=== PATIENT | male | born 1965 | race Asian ===

== ENCOUNTER 2018-05-15 20:58 | Inpatient (IN) | payer OTHER ==
[~2018-05-15] VITALS: Ht 162.6 cm; Wt 79.7 kg
[2018-05-15 23:00] VITALS: BP 154/86; PULSE 63; RESP 20
[2018-05-15] MEDS ORDERED: VANCOMYCIN IV PER PHARMACY XX SCH (23:30)
[2018-05-15] MEDS ORDERED: LEVOFLOXACIN 500 MG TAB PO ONE (23:30)
[2018-05-15] MEDS ORDERED: ACETAMINOPHEN 325 MG TAB PO PRN (23:30)
[2018-05-15] MEDS ORDERED: NACL 0.9% 3 ML SYG IV SCH (23:30)
[2018-05-15] MEDS ORDERED: ONDANSETRON 4 MG TAB PO PRN (23:30)
[2018-05-15] MEDS ORDERED: DOCUSATE SODIUM 100 MG CAP PO PRN (23:30)
[2018-05-15] MEDS ORDERED: HYDROCODONE/APAP (5/325) TAB PO PRN (23:30)
[2018-05-15] MEDS ORDERED: DEXTROSE 50% 50 ML SYRINGE IV PRN ×2 (23:45)
[2018-05-15] MEDS ORDERED: GLUCOSE GEL 15 GRAM TUBE PO PRN ×2 (23:45)
[2018-05-15] MEDS ORDERED: GLUCAGON 1 MG INJ IM PRN (23:45)
[2018-05-15] MEDS ORDERED: GLUCOSE GEL 15 GRAM TUBE BUCCAL PRN (23:45)
[2018-05-16] MEDS ORDERED: VANCOMYCIN HCL 1.5 GM in SOD CHLORIDE 0.9% 250 ML IVPB ONE (01:00)
[2018-05-16] MEDS ORDERED: ACCU-CHEK XX SCH (02:00)
[2018-05-16 03:12] VITALS: BP 114/71; PULSE 58; RESP 20
[2018-05-16] MEDS ORDERED: LEVOFLOXACIN 750 MG TABLET PO SCH (06:00)
[2018-05-16 07:27] VITALS: BP 118/77; PULSE 62; RESP 15
[2018-05-16] MEDS ORDERED: metFORMIN 850 MG TAB PO SCH (07:50)
[2018-05-16] MEDS: INSULIN ASPART [NOVOLOG] 3 ML PEN SC SCH ×2 (07:50→12:42)
[2018-05-16] MEDS ORDERED: FAMOTIDINE 20 MG TAB PO SCH (09:00)
[2018-05-16] MEDS ORDERED: HEPARIN 5,000 UNIT/1 ML VIAL SC SCH (09:00)
--- NOTE | 2018-05-16 09:05 | HP ---
Date/Time of Note Date/Time of Note DATE: 05/16/18 TIME: 09:00 Assessment/Plan VTE Prophylaxis Risk score (from Ns)>0 risk: 1 SCD applied (from Ns): Yes SCD contraindicated: low risk/ambulating Pharmacological prophylaxis: heparin Lines/Catheters IV Catheter Type [facility]from [facility]): [place] [facility] Urinary Cath still in place: No Assessment/Plan Problems: (1) Diabetes mellitus type 2 in obese Status: Chronic Comment: Good glycemic control and continue with current oral regimen. (2) Hyperlipidemia Status: Chronic Comment: Control is at goal using full dose statin therapy Qualifiers: Hyperlipidemia type: pure hypercholesterolemia Qualified Codes: E78.00 - Pure hypercholesterolemia, unspecified (3) Acute mastoiditis of left side Status: Acute Comment: He is receiving IV antibiotics plus oral quinolones. We will have ear nose and throat consultation with Dr. Hoffman who have communicated by text directly. He will give us guidance about the ultimate outpatient evaluation (4) Left maxillary sinusitis Status: Chronic Comment: This is clearly been going on for a while and will do well to be attended to although this I believe can be done as an outpatient. Consultation with Dr. Hoffman to help give us guidance Result Diagram: 05/16/18 0445 05/16/18 0445 Results 24hrs Laboratory Tests Test 05/16/18 02:56 05/16/18 04:45 05/16/18 08:31 Bedside Glucose 120 137 White Blood Count 7.7 Red Blood Count 4.88 Hemoglobin 14.1 Hematocrit 42.6 Mean Corpuscular Volume 87.3 Mean Corpuscular Hemoglobin 28.9 L Mean Corpuscular Hemoglobin Concent 33.1 Red Cell Distribution Width 12.0 Platelet Count 178 Mean Platelet Volume 11.5 H Immature Granulocytes % 0.100 Neutrophils % 62.1 Lymphocytes % 25.5 Monocytes % 9.0 Eosinophils % 2.6 Basophils % 0.7 Nucleated Red Blood Cells % 0.0 Immature Granulocytes # 0.010 Neutrophils # 4.8 Lymphocytes # 2.0 Monocytes # 0.7 Eosinophils # 0.2 Basophils # 0.1 Nucleated Red Blood Cells # 0.0 Sodium Level 137 Potassium Level 4.0 Chloride Level 98 Carbon Dioxide Level 30 Anion Gap 9 Blood Urea Nitrogen 14 Creatinine 0.75 Est Glomerular Filtrat Rate mL/min > 60 Glucose Level 134 Hemoglobin A1c 6.7 H Calcium Level 9.1 Total Bilirubin 0.5 Direct Bilirubin 0.00 Indirect Bilirubin 0.5 Aspartate Amino Transf (AST/SGOT) 29 Alanine Aminotransferase (ALT/SGPT) 45 Alkaline Phosphatase 58 Total Protein 7.7 Albumin 4.1 Globulin 3.60 H Albumin/Globulin Ratio 1.13 Triglycerides Level 106 Cholesterol Level 156 LDL Cholesterol, Calculated 89 HDL Cholesterol 46 Cholesterol/HDL Ratio 3.3 Thyroid Stimulating Hormone (TSH) 1.850 HPI/ROS Admit Date/Time Admit Date/Time May 15, 2018 at 22:46 Hx of Present Illness 83-year-old [place]an gentleman was in the emergency room at [facility] after having had 4-5 days of vertigo symptoms. He had not had any confusion he had not had any fevers chills or sweats he did not have headaches he did not have any neck pain or neck stiffness. They did CT scans copies of the reports of which are in our medical records which showed an acute mastoiditis. The emergency room physician at [facility] emergency room felt that he needed to be seen by ear nose and throat physician which [place] does not have available. He was transferred here so that he could be seen by ear nose and throat. Please note they gave him a dose of IV cephalosporins there. I have continued his antibiotics here and he reports in the 12 hours is been here is feeling better. No past medical history of diabetes in this non-smoker ROS Constitutional: no complaints (Denies fevers chills or sweats) Eyes: no complaints (No vision issues) ENT: other (Vertigo that is resolved also on careful questioning he does have fairly constant postnasal drip) Respiratory: no complaints Cardiovascular: no complaints Gastrointestinal: no complaints Genitourinary: no complaints Musculoskeletal: no complaints Skin: no complaints Neurologic: dizziness Endocrine: no complaints Lymphatic: no complaints Psychological: no complaints, nl mood/affect Immunologic: no complaints PMH/Family/Social Past Medical History Medical History: diabetes (Type II controlled with oral agents), high cholesterol, other (Usual childhood diseases; history of varus sella) Medications Outpatient medication regimen metformin 1 g once a day; atorvastatin 80 mg once a day Current Medications IV Flush (NS 3 ml) 3 ml PER PROTOCOL IV ; Start 05/15/18 at 23:30 Ondansetron HCl (Zofran Tab) 4 mg Q6H PRN PO NAUSEA AND/OR VOMITING; Start 05/15/18 at 23:30 Acetaminophen (Tylenol Tab) 650 mg Q6H PRN PO PAIN LEVEL 1-3 OR FEVER; Start 05/15/18 at 23:30 Acetaminophen/ Hydrocodone Bitart ([place] (5/325)) 1 tab Q6H PRN PO MODERATE PAIN LEVEL 4-6; Start 05/15/18 at 23:30 Docusate Sodium (Colace) 100 mg Q12H PRN PO CONSTIPATION; Start 05/15/18 at 23:30 Famotidine (Pepcid) 20 mg Q12 PO Last administered on 05/16/18at 08:33; Admin Dose 20 MG; Start 05/16/18 at 09:00 Heparin Sodium (Porcine) (Heparin (5000 Units/1ml)) 5,000 unit Q12 SC Last administered on 05/16/18at 08:36; Admin Dose 5,000 UNIT; Start 05/16/18 at 09:00 Diagnostic Test (Pha) (Accu-Chek) 1 ea 02 XX ; Start 05/16/18 at 02:00 Diagnostic Test (Pha) (Accu-Chek) 1 ea 2 HOURS AFTER MEALS XX ; Start 05/16/18 at 09:50 Insulin Aspart (Novolog Insulin Pen) NOVOLOG *MILD* ALGORITHM WITH MEALS BEDT [place] ; Start 05/16/18 at 07:50 Metformin HCl (Glucophage) 850 mg BID WITH MEALS PO Last administered on 05/16/18at 08:32; Admin Dose 850 MG; Start 05/16/18 at 07:50 Atorvastatin Calcium (Lipitor) 80 mg HS PO ; Start 05/16/18 at 21:00 Vancomycin HCl (Vanco Iv Per Pharmacy) VANCOMYCIN PER PHARMACY PER PROTOCOL XX ; Start 05/15/18 at 23:30 Levofloxacin (Levaquin) 750 mg DAILY@06 PO Last administered on 05/16/18at 05:21; Admin Dose 750 MG; Start 05/16/18 at 06:00 Miscellaneous Information 1 ea NOTE XX ; Start 05/15/18 at 23:45 Glucose (Glutose) 15 gm Q15M PRN PO DECREASED GLUCOSE; Start 05/15/18 at 23:45 Glucose (Glutose) 22.5 gm Q15M PRN PO DECREASED GLUCOSE; Start 05/15/18 at 23:45 Dextrose (D50w Syringe) 25 ml Q15M PRN IV DECREASED GLUCOSE; Start 05/15/18 at 23:45 Dextrose (D50w Syringe) 50 ml Q15M PRN IV DECREASED GLUCOSE; Start 05/15/18 at 23:45 Glucagon (Glucagen) 1 mg Q15M PRN IM DECREASED GLUCOSE; Start 05/15/18 at 23:45 Glucose (Glutose) 15 gm Q15M PRN BUCCAL DECREASED GLUCOSE; Start 05/15/18 at 23:45 Vancomycin HCl 1.25 gm/Sodium Chloride 250 ml @ 83.333 mls/ hr Q12H IVPB ; Start 05/16/18 at 13:00 Miscellaneous Information (*Rx Drug Level Order Reminder*) VANCO TROUGH @ 1,200 ON... ONCE ONCE XX ; Start 05/17/18 at 12:00; Stop 05/17/18 at 12:01 Coded Allergies: No Known Allergy (Unverified , 05/15/18) Past Surgical History Past Surgical Hx: other (Status post repair of rectal fistula in the remote p ast) Family History Significant Family History: diabetes, hypertension Social History Born in the [facility] and raised there. High school education without experience. lives with his and children. 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 Alcohol Use: rarely Smoking Status: Never smoker Drug Use: none Exam/Review of Systems Vital Signs Vitals Vital Signs Date Temp Pulse Resp B/P (MAP) Pulse Ox O2 O2 Flow FiO2 Time Delivery Rate 05/16/18 97.7 62 15 118/77 99 Room Air 07:27 (91) Intake and Output 05/15/18 05/15/18 05/16/18 1515:00 23:00 07:00 IntakeIntake Total 370 ml BalanceBalance 370 ml Exam Constitutional: alert, oriented Psych: no complaints, nl mood/affect Head: normocephalic, atraumatic Eyes: nl conjunctiva, EOMI, nl lids, nl sclera, PERRL ENMT: nl external ears & nose, nl lips & teeth, nl nasal mucosa & septum, mucosa pink and moist, other Neck: supple, non-tender Respiratory: clear to auscultation, normal air movement Cardiovascular: regular rate and rhythm, nl pulses Gastrointestinal: soft, nl liver, spleen, non-tender Musculoskeletal: nl extremities to inspection Neurological: DIGITAL PRODUCTION ARTIST II-XII intact, nl mental status, nl speech, nl strength RUSLAN MAYORGA MD May 16, 2018 09:05
[2018-05-16] MEDS: ACCU-CHEK XX SCH ×2 (10:54→13:40)
[2018-05-16] MEDS ORDERED: VANCOMYCIN HCL 1.25 GM in SOD CHLORIDE 0.9% 250 ML IVPB SCH (13:00)
--- NOTE | 2018-05-16 13:44 | DS ---
Date/Time of Note Date/Time of Note DATE: 05/16/18 TIME: 13:40 Discharge Summary Admission/Discharge Info Admit Date/Time May 15, 2018 at 22:46 Discharge Date/Time May 16, 2018 Discharge Diagnosis Otitis, Vestibulitis, DM2, Hyperlipidemia, Chronic sinusitis Patient Condition: Good Hx of Present Illness 53-year-old [place] gentleman was in the emergency room at [facility] after having had 4-5 days of vertigo symptoms. He had not had any confusion he had not had any fevers chills or sweats he did not have headaches he did not have any neck pain or neck stiffness. They did CT scans copies of the reports of which are in our medical records which showed an acute mastoiditis. The emergency room physician at [facility] emergency room felt that he needed to be seen by ear nose and throat physician which [place] does not have available. He was transferred here so that he could be seen by ear nose and throat. Please note they gave him a dose of IV cephalosporins there. I have continued his antibiotics here and he reports in the 12 hours is been here is feeling better. No past medical history of diabetes in this non-smoker Hospital Course Seen by ENT consult who feels can be appropriately managed as an outpatient with follow up with them in a week. Likely chronic Otitis Follow-up Plan Ent in 1 week, My office as scheduled in 2 months Primary Care Provider Ruslan Genao MD Time spent on discharge: > 30 minutes Pending Labs Laboratory Tests Test 05/16/18 02:56 05/16/18 04:45 05/16/18 08:31 05/16/18 10:52 Bedside 120 137 127 Glucose mg/dL (70-220) mg/dL (70-220) mg/dL (70-220) White Blood 7.7 Count 10^3/ul (4.8-1 0.8) Red Blood 4.88 Count 10^6/ul (4.70- 6.10) Hemoglobin 14.1 g/dl (14.0-18. 0) Hematocrit 42.6 % (42.0-52.0) Mean 87.3 Corpuscular fl (82.0-101.0 Volume ) Mean 28.9 Corpuscular pg (29.0-33.0) Hemoglobin Mean 33.1 Corpuscular g/dl (32.0-37. Hemoglobin Conc 0) ent Red Cell 12.0 Distribution % (11.5-14.5) Width Platelet Count 178 10^3/UL (140-4 15) Mean Platelet 11.5 Volume fl (7.4-10.4) Immature 0.100 Granulocytes % % (0.001-0.429 ) Neutrophils % 62.1 % (39.0-77.0) Lymphocytes % 25.5 % (15.0-51.0) Monocytes % 9.0 % (0.0-11.0) Eosinophils % 2.6 % (0.0-7.0) Basophils % 0.7 % (0.0-2.0) Nucleated Red 0.0 Blood Cells % /100WBC (0.0-0 .0) Immature 0.010 Granulocytes # 10^3/ul (0.0-0 .031) Neutrophils # 4.8 10^3/ul (1.6-7 .5) Lymphocytes # 2.0 10^3/ul (0.8-2 .9) Monocytes # 0.7 10^3/ul (0.3-0 .9) Eosinophils # 0.2 10^3/ul (0.0-0 .5) Basophils # 0.1 10^3/ul (0.0-0 .1) Nucleated Red 0.0 Blood Cells # 10^3/ul (0.0-0 .0) Sodium Level 137 mmol/L (135-14 4) Potassium 4.0 Level mmol/L (3.5-5. 1) Chloride Level 98 mmol/L (97-110 ) Carbon Dioxide 30 Level mmol/L (21-31) Anion Gap 9 (5-13) Blood Urea 14 Nitrogen mg/dl (7-20) Creatinine 0.75 mg/dl (0.61-1. 24) Est Glomerular > 60 Filtrat mL/min (>60) Rate mL/min Glucose Level 134 mg/dl (70-220) Hemoglobin A1c 6.7 % (0-5.9) Calcium Level 9.1 mg/dl (8.4-10. 2) Total 0.5 Bilirubin mg/dl (0.2-1.3 ) Direct 0.00 Bilirubin mg/dl (0.00-0. 20) Indirect 0.5 Bilirubin mg/dl (0-1.1) Aspartate Amino 29 Transf (AST/SGO IU/L (15-46) T) Alanine 45 Aminotransferas IU/L (13-69) e (ALT/SGPT) Alkaline 58 Phosphatase IU/L (42-121) Total Protein 7.7 g/dl (6.1-8.1) Albumin 4.1 g/dl (3.3-4.9) Globulin 3.60 g/dl (1.3-3.2) Albumin/Globuli 1.13 n Ratio Triglycerides 106 Level mg/dl (0-149) Cholesterol 156 Level mg/dl (100-200 ) LDL 89 mg/dl Cholesterol, Calculated HDL 46 Cholesterol mg/dl (28-71) Cholesterol/HDL 3.3 RATIO Ratio Thyroid 1.850 Stimulating MIU/L (0.465-4 Hormone (TSH) .680) Test 05/16/18 12:40 Bedside 97 Glucose mg/dL (70-220) RUSLAN GENAO MD May 16, 2018 13:44
--- NOTE | 2018-05-16 13:45 | PDOCDIS ---
Discharge Instructions DIAGNOSIS Discharge Diagnosis Otitis, Vestibulitis, DM2, Hyperlipidemia, Chronic sinusitis CONDITION [id number] Patient Condition: [id number] Fair HOME CARE INSTRUCTIONS: [id number] Special Diet: [id number] diabetic ACTIVITY: [id number] Activity Restrictions: [id number] No Restrictions FOLLOW UP/APPOINTMENTS Follow-up Plan Ent in 1 week, My office as scheduled in 2 months RUSLAN MAYORGA MD May 16, 2018 13:45
[2018-05-16] MEDS ORDERED: ATOR-2 PO (13:46)
[2018-05-16] MEDS ORDERED: LEVO750T25 PO (13:46)
[2018-05-16] MEDS ORDERED: METF-480 PO (13:46)
--- NOTE | 2018-05-16 16:52 | HP ---
DATE OF ADMISSION: 05/15/2018 HISTORY OF PRESENT ILLNESS: Shawn Bustillos is a 53-year-old gentleman with a history of dizziness fo r 2 days. He presented to [facility] with nausea but no vomiting. CAT scan of his head s howed possible left otomastoiditis and he was transferred to [facility]. The CT of his brain yesterday showed a possible retrocerebellar radha cisterna magna versus arachnoid cyst ____ sinus disease as well as left mastoid and middle ear opacification. A followup CT of the sinus show ed left frontal sinus complete opacification, total opacification of the left ethmoid cavity, left ma xillary sinus complete opacification and what appears to be a left middle meatal polyp. At this poin t, he denies any otalgia or otorrhea. He never had any true vertigo, just imbalance, although he is presently able to ambulate without significant dizziness. He has no tinnitus but has had some hearin g loss in his left ear for some time, a little worse for the last week. He did, however, a recent up per respiratory infection. PAST MEDICAL HISTORY: Type 2 diabetes, hypertension, hyperlipidemia. PAST SURGICAL HISTORY: Repair of rectal fistula. ALLERGIES: NO KNOWN DRUG ALLERGIES. MEDICATIONS: 1. Vancomycin. 2. Levaquin. 3. Lipitor. 4. Metformin. 5. Insulin. 6. Pepcid. 7. Heparin. SOCIAL HISTORY: Negative tobacco, alcohol, drug abuse. FAMILY HISTORY: Negative for any heart, lung, kidney failure, liver disease. REVIEW OF SYSTEMS: Otherwise noncontributory. PHYSICAL EXAMINATION: On examination today, the right eardrum is retracted, but there is no fluid, e rythema or infection. The left canal is clear. The tympanic membrane shows a total tympanic membran e perforation. The middle ear mucosa shows mild middle ear mucosal edema, but no evidence of dischar ge or infection at this time. There is no mastoid tenderness. The nose shows midline septum. Nasal endoscopy was performed. He has crusting on the right side and significant edema, but no evidence o f acute sinus infection. On the left side, however, there is a large polyp emanating from the middle meatus. The nasopharynx was otherwise clear. Oral cavity and pharynx show tongue, floor of mouth n ormal. Oropharynx without lesion. Neck reveals no lymphadenopathy or thyromegaly. Trachea is midli ne. Parotid and submandibular glands are without lesion. IMPRESSION: Left chronic mastoiditis, left tympanic membrane perforation, left nasal polyp, chronic sinusitis. PLAN: At this point, I think he can be discharged. I believe that his disease is all chronic based on what I am seeing. His antibiotics can be stopped and he will follow up in our office. We did dis cuss surgery on his left ear and while it is not completely necessary it should increase his hearing and make him much less likely to get infections. With regard to his nose, there is a large polyp on that side. He does have nasal obstruction and sinus symptoms and this could significantly address th at. With that being said, if there are any questions or concerns, he has been instructed to call our office. He has a card, and will make an appointment. We will see him in there in a week or two. I f there are any questions or concerns, please feel free to call at any time. Dictated By: MARY MICHAEL/MAYRA Conf#: [id number] DID#: [id number]
[2018-05-16] MEDS ORDERED: ATORVASTATIN 80 MG TAB PO SCH (21:00)
== END 2018-05-16 16:00 | disposition home or self-care (01) | DRG 153 ==
LOC: MS1 22:46
PROVIDERS: ADMIT Internal Medicine; ATTEND Internal Medicine
DX: H66.92 Otitis media, unspecified, left ear (principal); E11.9 Type 2 diabetes mellitus without complications; H72.822 Total perforations of tympanic membrane, left ear; H70.12 Chronic mastoiditis, left ear; E78.5 Hyperlipidemia, unspecified; J32.0 Chronic maxillary sinusitis; H83.02 Labyrinthitis, left ear; I10 Essential (primary) hypertension; Z79.4 Long term (current) use of insulin; Z79.84 Long term (current) use of oral hypoglycemic drugs
CPT/HCPCS: 80053; 80061; 82962; 83036; 84443; 85025; 87040; J1644; J1815; J3370; J7050